=== PATIENT | male | born 1985 | race Caucasian/White ===

== ENCOUNTER 2016-11-01 02:46 | Emergency (ER) | payer OTHER ==
[2016-11-01 04:00] LABS: BASOPHIL % 0.4 % (0-2); PLATELET COUNT 217 x10^3mcL (130-400); RED CELL DISTRIBUTION WIDTH 12.9 % (11.5-14.5)
[2016-11-01 04:08] LABS: CALCIUM 8.8 mg/dL (8.5-10.1); CHLORIDE SERUM 104 mmol/L (98-107); GFR1 > 60 mL/min; GLUCOSE SERUM 113 mg/dL (74-106); POTASSIUM SERUM 4.1 mmol/L (3.5-5.1); SODIUM SERUM 141 mmol/L (136-145)
[2016-11-01 04:15] LABS: ALBUMIN 4.4 g/dL (3.4-5.0); ALKALINE PHOSPHATASE 83 U/L (46-116); ALT/SGPT 56 U/L (16-63); AST/SGOT 57 U/L (15-37); BILIRUBIN TOTAL 0.32 mg/dL (0.20-1.00); TOTAL PROTEIN, SERUM 8.4 g/dL (6.4-8.2)
[2016-11-01 11:11] VITALS: BP 135/90
== END 2016-11-01 11:11 | disposition short-term general hospital (02) ==
LOC: ED 02:46
PROVIDERS: Emergency Medicine
DX: S06.0X1A Concussion with loss of consciousness of 30 minutes or less, initial encounter (principal); S26.91XA Contusion of heart, unspecified with or without hemopericardium, initial encounter; V89.2XXA Person injured in unspecified motor-vehicle accident, traffic, initial encounter; Y93.89 Activity, other specified; Y92.89 Other specified places as the place of occurrence of the external cause; Y99.8 Other external cause status
CPT/HCPCS: 83880; J1885; J2270; J2405; J3490; J7030; Q0092; Q9967